=== PATIENT | male | born 1975 | race Caucasian/White ===

== ENCOUNTER 2017-02-23 13:33 | Observation (INO) | payer BC, OTHER ==
[2017-02-23] VITALS (12 sets, daily range): BP systolic 117–156; BP diastolic 60–93; PULSE 69–101; RESP 16–20; TEMP 98–98.2; O2SAT 94–100
[~2017-02-23] VITALS: Ht 182.9 cm; Wt 96.0 kg
[~2017-02-23 13:33] MED LIST: CYCL-36 PO; HYDR-3533 PO; IBUP-238 PO; PRED20 PO
[2017-02-23 14:16] LABS: AUTOMATED NEUTROPHIL # 4.3 TH/MM3 (1.8-7.7); BASOPHIL % 0.3 % (0.0-2.0); EOSINOPHIL # 0.2 TH/MM3 (0-0.4); EOSINOPHIL % 2.3 % (0.0-4.0); HEMATOCRIT 44.6 % (39.0-51.0); HEMO FLAGS DIFF FINAL; LYMPH % 20.4 % (9.0-44.0); LYMPHOCYTE # 1.3 TH/MM3 (1.0-4.8); MEAN CELL VOLUME 88.6 FL (80.0-100.0); MEAN CORPUSCULAR HEMOGLOBIN 30.8 PG (27.0-34.0); MEAN CORPUSCULAR HGB CONC 34.8 % (32.0-36.0); MONO % 12.5 % (0.0-8.0); NEUT % 64.5 % (16.0-70.0); PLATELET COUNT 137 TH/MM3 (150-450); RED BLOOD COUNT 5.03 MIL/MM3 (4.50-5.90); RED CELL DISTRIBUTION WIDTH 13.5 % (11.6-17.2); WHITE BLOOD COUNT 6.6 TH/MM3 (4.0-11.0)
--- NOTE | 2017-02-23 14:17 | PD ---
HPI Chief Complaint: Chest Pain Time Seen by Provider: 14:12 Travel History International Travel<30 days: No Contact w/Intl Traveler<30days: No Traveled to known affect area: No History of Present Illness HPI 41-year-old male with history of CAD, hypertension, stents placed earlier this year by Dr. gifford, then again most recently 3 weeks ago in [place], presents emergency department for evaluation of left-sided chest pain intermittent for the last 2 days. Patient states that it is mostly on the left radiates to his left shoulder and this morning his left eye was feeling abnormal. States the pain is intermittent. It is alleviated with sublingual nitroglycerin. Patient states that he does not have to be doing anything for the pain come on. Reports nausea without vomiting. States his pain is a 6 out of 10 primarily in his left arm at this time. Denies any recent illnesses, fever, chills. No injury. He has no other symptoms to report. PFSH Past Medical History Cardiovascular Problems: Yes Social History Alcohol Use: No Tobacco Use: No Substance Use: No Allergies-Medications (Allergen,Severity, Reaction): Coded Allergies: No Known Allergies (Unverified , 01/02/15) Reported Meds & Prescriptions Reported Meds & Active Scripts Active Reported Omeprazole 20 Mg Tab 20 Mg PO HS Metoprolol Tartrate 50 Mg Tab 50 Mg PO BID Atorvastatin (Atorvastatin Calcium) 80 Mg Tab 80 Mg PO HS Lisinopril 10 Mg Tab 10 Mg PO DAILY Sertraline (Sertraline HCl) 100 Mg Tab 100 Mg PO HS Amlodipine (Amlodipine Besylate) 5 Mg Tab 5 Mg PO DAILY Isosorbide Mononitrate ER (Isosorbide Mononitrate) 30 Mg Tracy 30 Mg PO DAILY Carvedilol 25 Mg Tab 25 Mg PO BID Aspirin Low Dose (Aspirin) 81 Mg Chew 81 Mg CHEW DAILY Review of Systems Except as stated in HPI: all other systems reviewed are Neg Physical Exam Narrative GENERAL: Well-nourished male patient, ambulatory and in no acute distress. SKIN: Focused skin assessment warm/dry. HEAD: Atraumatic. Normocephalic. EYES: Pupils equal and round. No scleral icterus. No injection or drainage. ENT: No nasal bleeding or discharge. Mucous membranes pink and moist. NECK: Trachea midline. No JVD. CARDIOVASCULAR: Regular rate and rhythm. No murmur appreciated. RESPIRATORY: No accessory muscle use. Clear to auscultation. Breath sounds equal bilaterally. GASTROINTESTINAL: Abdomen soft, non-tender, nondistended. Hepatic and splenic margins not palpable. MUSCULOSKELETAL: No obvious deformities. No clubbing. No cyanosis. No edema. NEUROLOGICAL: Awake and alert. No obvious cranial nerve deficits. Motor grossly within normal limits. Normal speech. PSYCHIATRIC: Appropriate mood and affect; insight and judgment normal. Data Data Last Documented VS Vital Signs Date Time Temp Pulse Resp B/P (MAP) Pulse Ox O2 Delivery O2 Flow Rate FiO2 02/23/17 17:31 71 135/93 (107) 97 02/23/17 16:00 16 02/23/17 14:22 Room Air 02/23/17 13:34 98.0 Orders Orders Electrocardiogram (02/23/17 13:51) Ckmb (Isoenzyme) Profile (02/23/17 13:51) Complete Blood Count With Diff (02/23/17 13:51) Comprehensive Metabolic Panel (02/23/17 13:51) Magnesium (Mg) (02/23/17 13:51) Prothrombin Time / Inr (Pt) (02/23/17 13:51) Act Partial Throm Time (Ptt) (02/23/17 13:51) Troponin I (02/23/17 13:51) Lipase (02/23/17 13:51) Chest, Pa & Lat (02/23/17 13:51) Nitroglycerin Sl (Nitrostat Sl) (02/23/17 14:30) Aspirin Chew (Aspirin Chew) (02/23/17 14:18) CKMB (02/23/17 14:00) CKMB% (02/23/17 14:00) Morphine Inj (Morphine Inj) (02/23/17 15:45) Ondansetron Inj (Zofran Inj) (02/23/17 15:45) Morphine Inj (Morphine Inj) (02/23/17 18:15) Ondansetron Inj (Zofran Inj) (02/23/17 18:15) Electrocardiogram (02/23/17 ) Troponin I (02/23/17 18:15) Creatine Kinase (Cpk) (02/23/17 18:15) Admit Order (Ed Use Only) (02/23/17 18:16) Activity Bed Rest With Brp (02/23/17 18:16) Vital Signs (Adult) Q4H (02/23/17 18:16) Cardiac Rhythm .As Directed (02/23/17 18:16) Notify Dr: Other .PRN (02/23/17 18:16) Notify Dr. Parameters (02/23/17 18:16) Resp Oxygen Nasal Cannula (02/23/17 ) Diet Npo (02/24/17 Breakfast) Diet Heart Healthy (02/23/17 Dinner) Ckmb (Isoenzyme) Profile (02/23/17 21:15) Troponin I (02/23/17 21:15) Electrocardiogram (02/23/17 21:15) ^ Obtain (02/23/17 18:16) Sodium Chlor 0.9% 1000 Ml Inj (Ns 1000 M (02/23/17 18:16) Sodium Chloride 0.9% Flush (Ns Flush) (02/23/17 18:30) Sodium Chloride 0.9% Flush (Ns Flush) (02/23/17 21:00) Acetaminophen (Tylenol) (02/23/17 18:30) Acetamin-Hydrocod 325-7.5 Mg ([place] 7.5 (02/23/17 18:30) Morphine Inj (Morphine Inj) (02/23/17 18:30) Ondansetron Inj (Zofran Inj) (02/23/17 18:30) Nitroglycerin Sl (Nitrostat Sl) (02/23/17 18:30) Lay Brother / Telemetry LAZARO.Q8H (02/23/17 18:16) Reji Bilateral/Knee High LAZARO.QSHIFT (02/23/17 18:16) Labs Laboratory Tests Test 02/23/17 14:00 White Blood Count 6.6 TH/MM3 Red Blood Count 5.03 MIL/MM3 Hemoglobin 15.5 GM/DL Hematocrit 44.6 % Mean Corpuscular Volume 88.6 FL Mean Corpuscular Hemoglobin 30.8 PG Mean Corpuscular Hemoglobin Concent 34.8 % Red Cell Distribution Width 13.5 % Platelet Count 137 TH/MM3 Mean Platelet Volume 8.9 FL Neutrophils (%) (Auto) 64.5 % Lymphocytes (%) (Auto) 20.4 % Monocytes (%) (Auto) 12.5 % Eosinophils (%) (Auto) 2.3 % Basophils (%) (Auto) 0.3 % Neutrophils # (Auto) 4.3 TH/MM3 Lymphocytes # (Auto) 1.3 TH/MM3 Monocytes # (Auto) 0.8 TH/MM3 Eosinophils # (Auto) 0.2 TH/MM3 Basophils # (Auto) 0.0 TH/MM3 CBC Comment DIFF FINAL Differential Comment Prothrombin Time 10.6 SEC Prothromb Time International Ratio 1.0 RATIO Activated Partial Thromboplast Time 26.3 SEC Blood Urea Nitrogen 13 MG/DL Creatinine 1.01 MG/DL Random Glucose 96 MG/DL Total Protein 7.8 GM/DL Albumin 3.9 GM/DL Calcium Level 8.9 MG/DL Magnesium Level 1.9 MG/DL Alkaline Phosphatase 109 U/L Aspartate Amino Transf (AST/SGOT) 27 U/L Alanine Aminotransferase (ALT/SGPT) 45 U/L Total Bilirubin 0.5 MG/DL Sodium Level 139 MEQ/L Potassium Level 3.5 MEQ/L Chloride Level 106 MEQ/L Carbon Dioxide Level 24.2 MEQ/L Anion Gap 9 MEQ/L Estimat Glomerular Filtration Rate 81 ML/MIN Total Creatine Kinase 212 U/L Creatine Kinase MB 1.3 NG/ML Troponin I LESS THAN 0.02 NG/ML Lipase 117 U/L MDM Medical Decision Making Medical Screen Exam Complete: Yes Emergency Medical Condition: Yes Medical Record Reviewed: Yes Differential Diagnosis ACS versus chest wall pain versus pleuritic pain versus spasm Narrative Course 41-year-old male presents to emergency department for evaluation of left-sided chest pain. Patient appears without distress. He is currently having pain. He is given sublingual nitroglycerin which helped briefly improve his pain but it does return. EKGs is reviewed by my attending physician no acute ST elevation or depression. Laboratory Tests Test 02/23/17 14:00 White Blood Count 6.6 TH/MM3 Red Blood Count 5.03 MIL/MM3 Hemoglobin 15.5 GM/DL Hematocrit 44.6 % Mean Corpuscular Volume 88.6 FL Mean Corpuscular Hemoglobin 30.8 PG Mean Corpuscular Hemoglobin Concent 34.8 % Red Cell Distribution Width 13.5 % Platelet Count 137 TH/MM3 Mean Platelet Volume 8.9 FL Neutrophils (%) (Auto) 64.5 % Lymphocytes (%) (Auto) 20.4 % Monocytes (%) (Auto) 12.5 % Eosinophils (%) (Auto) 2.3 % Basophils (%) (Auto) 0.3 % Neutrophils # (Auto) 4.3 TH/MM3 Lymphocytes # (Auto) 1.3 TH/MM3 Monocytes # (Auto) 0.8 TH/MM3 Eosinophils # (Auto) 0.2 TH/MM3 Basophils # (Auto) 0.0 TH/MM3 CBC Comment DIFF FINAL Differential Comment Prothrombin Time 10.6 SEC Prothromb Time International Ratio 1.0 RATIO Activated Partial Thromboplast Time 26.3 SEC Blood Urea Nitrogen 13 MG/DL Creatinine 1.01 MG/DL Random Glucose 96 MG/DL Total Protein 7.8 GM/DL Albumin 3.9 GM/DL Calcium Level 8.9 MG/DL Magnesium Level 1.9 MG/DL Alkaline Phosphatase 109 U/L Aspartate Amino Transf (AST/SGOT) 27 U/L Alanine Aminotransferase (ALT/SGPT) 45 U/L Total Bilirubin 0.5 MG/DL Sodium Level 139 MEQ/L Potassium Level 3.5 MEQ/L Chloride Level 106 MEQ/L Carbon Dioxide Level 24.2 MEQ/L Anion Gap 9 MEQ/L Estimat Glomerular Filtration Rate 81 ML/MIN Creatine Kinase MB 1.3 NG/ML Lipase 117 U/L Last Impressions Chest X-Ray 02/23/17 1351 Signed Impressions: Service Date/Time: Thursday, February 23, 2017 14:08 - CONCLUSION: No acute disease. Ant Pond MD 0100 patient states he is having left arm pain with associated nausea this time. He'll be given additional pain control medication and antiemetic. I have reviewed the findings with my attending. I have also called Dr. gifford who will come and evaluate the patient in the emergency department. [address] Gifford. He has been held up and at this time we'll not be able to get to evaluate the patient but does request observation admission he' ll see him tomorrow. Patient is placed in the chest pain center. Plans discussed with the patient and . They are in agreement with this plan of care. Diagnosis Primary Impression: Chest pain Qualified Codes: R07.9 - Chest pain, unspecified Admitting Information Admitting Physician Requests: Observation Condition: Stable Radha Rodriguez AVA Feb 23, 2017 14:17
[2017-02-23] MEDS ORDERED: ASPIRIN 81 MG CHEW TAB CHEW STA (14:18)
--- NOTE | 2017-02-23 14:24 | RADRPT ---
EXAM DATE/TIME: 02/23/2017 14:08 [facility] COMPARISON: No previous studies available for comparison. INDICATIONS : Chest pain and short of breath. MEDICAL HISTORY : Cardiovascular disease. SURGICAL HISTORY : Cardiac stents. ENCOUNTER: Initial ACUITY: 2 days PAIN SCORE: 5/10 LOCATION: Left chest FINDINGS: PA and lateral views of the chest demonstrate the lungs to be symmetrically aerated without evidence of mass, infiltrate or effusion. The cardiomediastinal contours are unremarkable. Coronary artery st ents. Osseous structures are intact. CONCLUSION: No acute disease. Ant Pond MD on February 23, 2017 at 14:19 Board Certified Radiologist. This report was verified electronically.
[2017-02-23 14:26] LABS: APTT (PATIENT) 26.3 SEC (24.3-30.1); PROTHROMBIN TIME - PATIENT 10.6 SEC (9.8-11.6)
[2017-02-23] MEDS: NITROGLYCERIN 0.4 MG SL 25 TABS/BTL SL SCH ×3 (14:34→17:33)
[2017-02-23 14:38] LABS: ANION GAP 9 MEQ/L (5-15); AST (GOT) 27 U/L (15-37); BICARBONATE 24.2 MEQ/L (21.0-32.0); BLOOD UREA NITROGEN 13 MG/DL (7-18); CHLORIDE 106 MEQ/L (98-107); GLOMERULAR FILTRATION RATE 81 ML/MIN (>89); MAGNESIUM 1.9 MG/DL (1.5-2.5); POTASSIUM 3.5 MEQ/L (3.5-5.1); SODIUM (NA) 139 MEQ/L (136-145)
[2017-02-23 14:39] LABS: ALT (GPT) 45 U/L (12-78)
[2017-02-23 14:43] LABS: ALKALINE PHOSPHATASE 109 U/L (45-117); CREATINE KINASE 212 U/L (39-308); TOTAL BILIRUBIN ADULT 0.5 MG/DL (0.2-1.0)
[2017-02-23 14:56] LABS: CKMB 1.3 NG/ML (0.5-3.6)
[2017-02-23] MEDS ORDERED: ONDANSETRON HCL 4 MG/2 ML VIAL IV PUSH ONE ×2 (15:45→18:15)
[2017-02-23] MEDS ORDERED: MORPHINE SULFATE 4 MG/ML INJ IV PUSH ONE ×2 (15:45→18:15)
[2017-02-23] MEDS ORDERED: ACETAMINOPHEN 500 MG CPLT PO PRN (18:30)
[2017-02-23] MEDS ORDERED: SODIUM CHLORIDE 0.9% FLUSH 10 ML FLUSH IV FLUSH PRN (18:30)
[2017-02-23] MEDS ORDERED: ONDANSETRON HCL 4 MG/2 ML VIAL IV PUSH PRN (18:30)
[2017-02-23] MEDS ORDERED: ACETAMINOPHEN/HYDROcodone 325 MG/7.5 MG TAB PO PRN (18:30)
[2017-02-23] MEDS: SODIUM CHLOR 0.9% 1000 ML INJ 1,000 ML IV SCH (19:03)
[2017-02-23 19:10] LABS: CREATINE KINASE 171 U/L (39-308)
[2017-02-23] MEDS ORDERED: ASPI81CH6 CHEW (20:20)
[2017-02-23] MEDS ORDERED: CARV25TA PO (20:20)
[2017-02-23] MEDS ORDERED: ISOS30TA3 PO (20:20)
[2017-02-23] MEDS ORDERED: AMLO5TAB2 PO (20:22)
[2017-02-23] MEDS ORDERED: SERT-129 PO (20:23)
[2017-02-23] MEDS ORDERED: LISI10TA3 PO (20:24)
[2017-02-23] MEDS ORDERED: ATOR80TA45 PO (20:26)
[2017-02-23] MEDS ORDERED: METO50TA PO (20:27)
[2017-02-23] MEDS ORDERED: OMEP20TA93 PO (20:29)
[2017-02-23] MEDS ORDERED: SODIUM CHLORIDE 0.9% FLUSH 10 ML FLUSH IV FLUSH SCH (21:00)
[2017-02-23] MEDS: MORPHINE SULFATE 4 MG/ML INJ IV PUSH PRN (22:24)
[2017-02-23 22:56] LABS: CREATINE KINASE 155 U/L (39-308)
[2017-02-23] MEDS: NITROGLYCERIN 0.4 MG SL 25 TABS/BTL SL PRN ×2 (23:39→23:49)
[2017-02-23] MEDS ORDERED: BRIL90TA PO (23:45)
[2017-02-23] MEDS ORDERED: ALPR.5 PO (23:46)
[2017-02-24 00:10] VITALS: PULSE 92
[2017-02-24 03:34] VITALS: BP 122/69; PULSE 67; RESP 18; TEMP 98.3; O2SAT 97
[2017-02-24] MEDS: SODIUM CHLOR 0.9% 1000 ML INJ 1,000 ML IV SCH (04:17)
[2017-02-24] MEDS: MORPHINE SULFATE 4 MG/ML INJ IV PUSH PRN (04:18)
[2017-02-24 04:21] VITALS: PULSE 69
[2017-02-24] MEDS: NITROGLYCERIN 0.4 MG SL 25 TABS/BTL SL PRN ×3 (05:51→06:02)
[2017-02-24 05:54] VITALS: BP 109/63; PULSE 80; RESP 18; O2SAT 93
[2017-02-24 07:28] VITALS: BP 111/60; PULSE 81; RESP 20; TEMP 97.5
[2017-02-24] MEDS ORDERED: MORPHINE SULFATE 2 MG/ML INJ IV ONE (07:45)
--- NOTE | 2017-02-24 09:03 | PD.CONS ---
HPI Service cardiology Consult Requested By Reason for Consult chest pain Primary Care Physician Ishaan Neal, DO History of Present Illness This is a 41 yo WM with CAD, PCI NATHALY placed to [facility] diagonal in 2015 for severe in-stent restenosis and reported recent re-catheterization in [place] who presents with exertional chest pain starting 3 days ago during work. He had to leave work early due to feeling unwell and continues to have intermittent chest discomfort radiating to left arm and jaw felt now at rest and with associated nausea. He came to ED for evaluation where troponins are negative, ECG shows no ST changes. He does get relief of symptoms with nitro and morphine. He mentions his troponins, ECG and stress tests have always looked normal in the past and ultimately required catheterizations which shows coronary disease. Last echo on file is February 2016 showing normal EF. He states he has been compliant with medications and takes Effient daily. (Maricel Johnson) Review of Systems Consitutional: DENIES: Fatigue, Fever, Chills, Weight gain, Weight loss Respiratory: DENIES: Cough, Snoring, Shortness of breath, Wheezing, Sputum production Cardiovascular: DENIES: Palpitations, Syncope, Tachycardia Gastrointestinal: DENIES: Vomiting, Change in bowel habits, Reflux, Bloody stools, Melena (Maricel Johnson) Past Family Social History Allergies: Coded Allergies: No Known Allergies (Unverified Allergy, Unknown, 02/24/17) Past Medical History CAD, prior PCI with stenting Reported Medications Reported Meds & Active Scripts Active Reported Xanax (Alprazolam) 0.5 Mg Tab 0.5 Mg PO BID PRN Brilinta (Ticagrelor) 90 Mg Tab 90 Mg PO BID Omeprazole 20 Mg Tab 20 Mg PO HS Metoprolol Tartrate 50 Mg Tab 50 Mg PO BID Atorvastatin (Atorvastatin Calcium) 80 Mg Tab 80 Mg PO HS Lisinopril 10 Mg Tab 10 Mg PO DAILY Sertraline (Sertraline HCl) 100 Mg Tab 100 Mg PO HS Amlodipine (Amlodipine Besylate) 5 Mg Tab 5 Mg PO DAILY Isosorbide Mononitrate ER (Isosorbide Mononitrate) 30 Mg Tracy 30 Mg PO DAILY Carvedilol 25 Mg Tab 25 Mg PO BID Aspirin Low Dose (Aspirin) 81 Mg Chew 81 Mg CHEW DAILY Active Ordered Medications Current Medications Medications (Trade) Dose Ordered Sig/[place] Route Start Time Stop Time Status Last Admin Sodium Chloride 1,000 ml @ 100 mls/hr Q10H IV 02/23/17 18:16 02/24/17 04:17 (NS Flush) 2 ml UNSCH PRN IV FLUSH 02/23/17 18:30 (NS Flush) 2 ml BID IV FLUSH 02/23/17 21:00 02/23/17 22:23 (Tylenol) 500 mg Q4H PRN PO 02/23/17 18:30 ([place] 7.5-325 Mg) 1 tab Q4H PRN PO 02/23/17 18:30 02/24/17 00:03 (Morphine Inj) 2 mg Q4H PRN IV PUSH 02/23/17 18:30 02/24/17 04:18 (Zofran Inj) 4 mg Q6H PRN IV PUSH 02/23/17 18:30 02/23/17 22:24 (Nitrostat Sl) 0.4 mg Q5M PRN SL 02/23/17 18:30 02/24/17 06:02 Family History non-contributory Social History denies tobacco or etoh (Maricel Johnson) Physical Exam Vital Signs Vital Signs Date Time Temp Pulse Resp B/P (MAP) Pulse Ox O2 Delivery O2 Flow Rate FiO2 02/24/17 07:28 97.5 81 20 111/60 (77) 02/24/17 05:54 80 18 109/63 (78) 93 02/24/17 04:21 69 02/24/17 03:34 98.3 67 18 122/69 (86) 97 02/24/17 00:10 92 02/23/17 23:55 95 18 117/60 (79) 94 02/23/17 23:40 101 20 121/61 (81) 94 02/23/17 22:56 98.0 81 18 130/75 (93) 95 02/23/17 21:07 88 02/23/17 20:29 98.2 69 18 139/70 (93) 96 02/23/17 20:11 02/23/17 19:03 70 16 128/74 (92) 96 Room Air 02/23/17 17:31 71 135/93 (107) 97 02/23/17 16:00 80 16 126/74 (91) 96 02/23/17 15:52 72 20 97 02/23/17 14:25 76 140/90 (107) 02/23/17 14:22 73 16 98 Room Air 02/23/17 13:34 98.0 73 16 156/93 (114) 100 Physical Exam GENERAL: SKIN: Warm and dry. HEAD: Atraumatic. Normocephalic. EYES: Pupils equal and round. . ENT: No nasal bleeding or discharge. NECK: Trachea midline. No JVD. CARDIOVASCULAR: Regular rate and rhythm. No murmurs RESPIRATORY: No accessory muscle use. Clear to auscultation. Breath sounds equal bilaterally. GASTROINTESTINAL: Abdomen soft, non-tender, nondistended. e. MUSCULOSKELETAL: Extremities without clubbing, cyanosis, or edema. No obvious deformities. NEUROLOGICAL: Awake and alert. No obvious cranial nerve deficits. Normal speech. PSYCHIATRIC: Appropriate mood and affect; insight and judgment normal. Laboratory Laboratory Tests Test 02/23/17 14:00 02/23/17 18:37 02/23/17 21:59 White Blood Count 6.6 Red Blood Count 5.03 Hemoglobin 15.5 Hematocrit 44.6 Mean Corpuscular Volume 88.6 Mean Corpuscular Hemoglobin 30.8 Mean Corpuscular Hemoglobin Concent 34.8 Red Cell Distribution Width 13.5 Platelet Count 137 Mean Platelet Volume 8.9 Neutrophils (%) (Auto) 64.5 Lymphocytes (%) (Auto) 20.4 Monocytes (%) (Auto) 12.5 Eosinophils (%) (Auto) 2.3 Basophils (%) (Auto) 0.3 Neutrophils # (Auto) 4.3 Lymphocytes # (Auto) 1.3 Monocytes # (Auto) 0.8 Eosinophils # (Auto) 0.2 Basophils # (Auto) 0.0 CBC Comment DIFF FINAL Differential Comment Prothrombin Time 10.6 Prothromb Time International Ratio 1.0 Activated Partial Thromboplast Time 26.3 Blood Urea Nitrogen 13 Creatinine 1.01 Random Glucose 96 Total Protein 7.8 Albumin 3.9 Calcium Level 8.9 Magnesium Level 1.9 Alkaline Phosphatase 109 Aspartate Amino Transf (AST/SGOT) 27 Alanine Aminotransferase (ALT/SGPT) 45 Total Bilirubin 0.5 Sodium Level 139 Potassium Level 3.5 Chloride Level 106 Carbon Dioxide Level 24.2 Anion Gap 9 Estimat Glomerular Filtration Rate 81 Total Creatine Kinase 212 171 155 Creatine Kinase MB 1.3 1.0 Troponin I LESS THAN 0.02 LESS THAN 0.02 LESS THAN 0.02 Lipase 117 (Maricel Johnson) Result Diagram: 02/23/17 1400 02/23/17 1400 Assessment and Plan Problem List: (1) CAD (coronary artery disease) ICD Codes: I25.10 - Atherosclerotic heart disease of [place] coronary artery without angina pectoris (2) Chest pain ICD Codes: R07.9 - Chest pain, unspecified Status: Acute Assessment and Plan This is a 41 yo WM with CAD, PCI NATHALY placed to diagonal in 2016 for severe in-stent restenosis and reported recent re-catheterization in [place] who presents with exertional chest pain starting 3 days ago during work. troponin negative. ECG shows no concerning ST changes. angina- He continues to feel symptomatic intermittently overnight. Symptoms are suggestive of CAD and will plan for LHC later this afternoon. keep npo (Maricel Johnson) Assessment and Plan LHC - LAD/Diagonal stents patent. Mild LCx disease. small nondominant RCA 80% stenosis. medical mgt restart brillinta! asa statin. increase isosorbide 120 mg daily DC planning FU in OPD (Tyrone Johnston MD) Problem Qualifiers (1) Chest pain: Qualified Codes: R07.9 - Chest pain, unspecified Maricel Johnson Feb 24, 2017 09:03 Tyrone Johnston MD Feb 24, 2017 11:11
[2017-02-24] MEDS ORDERED: HEPARIN-NS/PF INJ 500 ML ONE (10:47)
[2017-02-24] MEDS ORDERED: MIDAZOLAM HCL 2 MG/2 ML VIAL ONE ×2 (10:49→10:56)
[2017-02-24] MEDS ORDERED: TICAGRELOR 90 MG TAB PO ONE (11:08)
[2017-02-24] MEDS ORDERED: ISOS120T PO (11:20)
--- NOTE | 2017-02-24 11:23 | HHI.DS ---
Discharge Summary Admission Date Feb 23, 2017 at 18:19 Admitting Diagnosis CHEST PAIN Procedures [facility] CBC/BMP: 02/23/17 1400 02/23/17 1400 Significant Findings Laboratory Tests Test 02/23/17 14:00 02/23/17 18:37 02/23/17 21:59 Platelet Count 137 TH/MM3 (150-450) Monocytes (%) (Auto) 12.5 % (0.0-8.0) Estimat Glomerular Filtration Rate 81 ML/MIN (>89) Troponin I LESS THAN 0.02 NG/ML LESS THAN 0.02 NG/ML LESS THAN 0.02 NG/ML PE at Discharge GENERAL: SKIN: Warm and dry. HEAD: Normocephalic. EYES: No scleral icterus. No injection or drainage. NECK: Supple, trachea midline. No JVD or lymphadenopathy. CARDIOVASCULAR: Regular rate and rhythm without murmurs, gallops, or rubs. RESPIRATORY: Breath sounds equal bilaterally. No accessory muscle use. GASTROINTESTINAL: Abdomen soft, non-tender, nondistended. MUSCULOSKELETAL: No cyanosis, or edema. BACK: Nontender without obvious deformity. No CVA tenderness. Pt Condition on Discharge: Good Discharge Disposition: Discharge Home Discharge Instructions DIET: Follow Instructions for: Heart Healthy Diet Activities you can perform: Weight Bearing as Tyrone Elizabeth MD Feb 24, 2017 11:23
--- NOTE | 2017-02-24 11:24 | CATHPROC ---
Transmit HIS Report Study Information Study Number Admission Scheduled Start Study Start [id number] Feb 23 2017 6:19PM 02/24/2017 02/24/2017 [place] [facility] Cardiac Catheterization Admit Source Facility Department Emergency department [facility] - Infant Toddler Lead Teacher Physician and Clinical Staff Initial Tyrone Bullock Sawdust Machine Operator Srinivas Irvin Recorder Evette Newton,RT(R) Scrub Jim PerezSECRETARIAL STENOGRAPHER(BS) Procedures Performed Procedure Location (Site) Vessel Name Coronary Angiograms LCA Left Coronary Coronary Angiograms RCA Right Coronary L Heart Cath Wire insertion Fem Art (right) Femoral Art Equipment Time Rn Dermatology Description Size Mfg Part Number Used/Scraped TRANSDUCER, TRUWAVE [id number] 10:52 MCINTYRE MCMILLAN * Used W/STOCKCOCK *[id number] *[id number] *[id number] 10:52 [employer] IND[employer]RIES PACK, CCL CUSTOM * Used *[id number] 10:52 [employer] PACER PEN, SKIN DUAL W/ RULER * Used *[id number] 10:54 [employer] (Former[employer]) MEDICAL WIRE, 3MMJ .035 180CM 180CM Used *[id number] 10:52 MERIT MEDICAL WIRE, 3MMJ .035 180CM 180CM Used *[id number] 10:52 NAMIC MANIFOLD, 4 PORT * Used *[id number] 10:52 NYCOMED OMNIPAQUE, 350 MG, 150ML 150ML [id number] Used [id number] 10:52 [employer] MEDICAL BLANKET,WARM AIR CCL * Used *[id number] 10:52 TERUMO MEDICAL SHEATH, FR5 TERUMO (10CM) FR 5 Used *[id number] History: Current Medications Medication Dosage/Unit Route Frequency Last Date/Time Taken ASA Beta Lakeisha BRILLINTA Statins (any) NORVASC History: Allergies Allergy Reaction No Known Allergies History: Risk Factors Family History of Hypertension Dyslipidemia Previous TN Previous Heart Failure Premature CAD Yes Yes No No No Prior Valve Prior PCI Prior PCIDate Prior CABG Surgery No Yes 03/16/2015 No Cerebrovascular Peripheral Artery Chronic Lung On Dialysis Diabetes Disease Disease Disease No No No No No History: Symptoms/Diagnosis Selection Items Chest pain History: CV Disease Selection Items Known CAD History: Stress Tests Stress or Imaging Studies Performed No History: Other Disease Selection Items CAD Labs Hgb (g/dl) Hct (%) WBC (l/cumm) Platelets (thousands) 11.60-17.00 35.00-51.00 4.00-11.00 150.00-450.00 15.5 44 6.6 137 Glucose (mg/dl) BUN (mg/dl) Creatinine (mg/dl) BUN:Creatinine (1:x) 74.00-106.00 7.00-18.00 0.50-1.30 10.00-20.00 96 13 1.0 13 Na (meq/l) K (meq/l) 136.00-145.00 3.50-5.10 139 3.5 INR (PTT:PT) 0.90-1.10 1 Troponin I (ng/ml) CPK (u/l) CPK-MB (ng/ML) 0.02-0.05 26.00-308.00 0.50-3.60 0.2 135 Not Drawn Medication Medication Total Dose (Bolus/Oral) Medication Total Dosage/Unit 1% XYLOCAINE 20 mL BRILLINTA 180 mg FENTANYL 100 mcg VERSED 4 mg Medications (Bolus/Oral) Medication Time Given Dosage/Unit Administered By Reason 02/24/2017 10:50:21 VERSED 2 mg Srinivas Irvin AM 2 mg VERSED given in lab by Srinivas Irvin via Peripheral IV. Ordered by Tyrone Johnston. 02/24/2017 10:51:25 FENTANYL 50 mcg Srinivas Irvin AM 50 mcg FENTANYL given in lab by Srinivas Irvin via Peripheral IV. Ordered by Tyrone Johnston. 02/24/2017 10:56:04 1% XYLOCAINE 20 mL Tyrone Johnston AM 20 mL 1% XYLOCAINE given in lab by Tyrone Johnston in Right Groin via Subcutaneous. 02/24/2017 10:58:42 VERSED 2 mg Srinivas Irvin AM 2 mg VERSED given in lab by Srinivas Irvin via Peripheral IV. 02/24/2017 10:59:50 FENTANYL 50 mcg Srinivas Irvin AM 50 mcg FENTANYL given in lab by Srinivas Irvin via Peripheral IV. 02/24/2017 11:09:40 BRILLINTA 180 mg Srinivas Irvin AM 180 mg BRILLINTA given in lab by Srinivas Irvin in Per mouth via Oral. Medication (Drip) Medication Time Given Dosage/Unit Concentration/Unit Diluent (ml) Jocelyn n 02/24/2017 10:43:21 IV Solutions 50 mL (IV) NaCl .9 AM IV Solutions given in lab by Srinivas Irvni in Right Forearm via Peripheral IV. Pump/Drip Flow usin g NaCl .9. 02/24/2017 10:48:41 IV Solutions 0 mL (IV) 500 NaCl .9 AM IV Solutions given in lab by Srinivas Irvin in Right Forearm via Peripheral IV. Pump/Drip Flow = 20 ml/hr using NaCl .9. Ordered by Tyrone Johnston. Initial Case Assessment Cardiovascular HR Rhythm NIBP Chest Pain 64 reg 140/94 0 Edema Present Skin color Skin None Normal Warm Circulatory - Right Pulses Posterior Tibial Femoral 3 2 Scale (0,1,2,3,4,d) Circulatory - Left Pulses Posterior Tibial Femoral 2 Scale (0,1,2,3,4,d) Circulatory - Lower Extremities Color Lower Right Color Lower Left Normal Normal Neurological State Oriented to time-place- Alert Moves all extremities person Respiration - General Respiration Rate SpO2 (%) (B/min) 16 98 Final Case Assessment Cardiovascular HR Rhythm NIBP Chest Pain 80 reg 142/90 0 Edema Present Skin color Skin None Normal Warm Circulatory - Right Pulses Dorsalis Pedis Femoral 2 2 Scale (0,1,2,3,4,d) Circulatory - Left Pulses Dorsalis Pedis Femoral 2 Scale (0,1,2,3,4,d) Circulatory - Lower Extremities Color Lower Right Color Lower Left Normal Normal Neurological State Oriented to time-place- Alert Moves all extremities person Respiration - General Respiration Rate SpO2 (%) (B/min) 21 95 Chronological Log Time Study Chronological Log 10:35:00 Patient arrived via Bed. 10:43:05 Patient Name, D.O.B, / Armband Verified By R.N. 10:43:05 Consent signed by the physician and the patient and verified by the Infant Toddler Lead Teacher staff. 10:43:06 Pre-op and post- op instructions given; patient acknowledges understanding of instructions. 10:43:07 Verbal Stimulation=2 Physical Stimulation=2 Airway=2 Respiration=2 TOTAL=8. (0=absent, 1=li mited, 2=present) 10:43:16 Patient has been NPO for More than 6Hrs. 10:43:17 Skin Breakdown-none 10:43:18 Patient Warmer Placed on the Table. 10:43:19 Amauri Prominences Protected 10:43:20 A # 18 IV was noted in the Forearm (right). Grade = 0 10:43:21 IV Solutions given in lab by Srinivas Irvin in Right Forearm via Peripheral IV. Pump/Drip Flow using NaCl .9. 10:43:21 History and physical on the chart or being dictated. Assessment: Initial Case, HR=64 BPM, Rhythm=reg, VVMF=827/94 mmhg, Chest Pain=0, Edema=None, Co harshil=Normal, Skin = Warm Right Pulses: Post Tib=3, Femoral=2 Left Pulses: Evaristo Ped=2, Femoral=2 10:43:22 Lower Right Extremities: Color=Normal Lower Left Extremities: Color=Normal Neurological: State=Alert, Ox3, MONSON Respiration: Resp=16 B/min, SpO2=98 % Vitals capture started with the following parameters, Patient=Adult, Interval=5 min, Initial Pr tfgqjo=544 mmHg, 10:43:26 Deflation Rate=5 mmHg, Cuff placed on Left Arm 10:44:41 HR=70 bpm, MZNX=835/94 mmhg, TyK5=681.0 %, Resp=21 B/min, Pain=0, Brianda=10, Hogan=2 10:45:04 Reference ECG taken 10:46:16 Bilateral groins prepped with 2% chlorhexidine, and draped after a 3 minute waiting time. 10:46:20 paged 10:48:31 A # 20 IV was noted in the Forearm (right). Grade = 0 IV Solutions given in lab by Srinivas Irvin in Right Forearm via Peripheral IV. Pump/Drip Cristhian w = 20 ml/hr using NaCl 10:48:41 .9. Ordered by Tyrone Johnston. 10:49:03 HR=60 bpm, LLXC=823/94 mmhg, SpO2=98.0 %, Resp=15 B/min, Pain=0, Brianda=10, Hogan=2 10:49:38 arrived. 10:50:21 2 mg VERSED given in lab by Srinivas Irvin via Peripheral IV. Ordered by Tyrone Johnston. 10:51:25 50 mcg FENTANYL given in lab by Srinivas Irvin via Peripheral IV. Ordered by Liyah Johnston. 10:52:51 Pressure channel 1 zeroed. 10:54:08 HR=72 bpm, PPGA=325/94 mmhg, SpO2=98.0 %, Resp=22 B/min, Pain=0, Brianda=10, Hogan=2 Time Out. Correct patient, correct procedure, correct physician, power injector not loaded with contrast with surgical 10:55:04 team present. Time Out Concurred by MD and individual staff in procedure. 10:55:27 Case Start 10:56:04 20 mL 1% XYLOCAINE given in lab by Tyrone Johnston in Right Groin via Subcutaneous. 10:56:59 Access site was Right Femoral Artery. 10:57:03 A wire was inserted via Fem Art (right). 10:57:06 A SHEATH, FR5 TERUMO (10CM) FR 5 was advanced into the Fem Art (right) using the Percutaneo us technique. A JL 4.0 INFINITI CATHETER FR 5 was advanced over a wire. OMNIPAQUE, 350 MG, 150ML 150ML was us ed for 10:58:22 injections. 10:58:42 2 mg VERSED given in lab by Srinivas Irvin via Peripheral IV. 10:59:07 HR=83 bpm, NTJN=979/105 mmhg, SpO2=96.0 %, Resp=15 B/min, Pain=0, Brianda=10, Hogan=2 10:59:50 50 mcg FENTANYL given in lab by Srinivas Irvin via Peripheral IV. 11:00:24 The LCA was injected and visualized at various angles. OMNIPAQUE, 350 MG, 150ML 150ML used . Recorded Pressure: Ao, HR=75, Condition=Condition 1 11:00:35 (Aorta) Ao 134/82/103 After removing the current catheter a JR 4.0 INFINITI CATHETER FR 5 was advanced over a WIRE, 3 MMJ .035 180CM 11:03:31 180CM. 11:04:06 HR=74 bpm, ZDMD=181/97 mmhg, SpO2=90.0 %, Resp=11 B/min, Pain=0, Brianda=10, Hogan=2 11:04:15 The RCA was injected and visualized at various angles. OMNIPAQUE, 350 MG, 150ML 150ML used . 11:07:18 Catheter was removed 11:07:23 Case End Assessment: Final Case, HR=80 BPM, Rhythm=reg, TWZH=736/90 mmhg, Chest Pain=0, Edema=None, Col or=Normal, Skin = Warm Right Pulses: Evaristo Ped=2, Femoral=2 Left Pulses: Post Tib=3, Femoral=2 11:08:10 Lower Right Extremities: Color=Normal Lower Left Extremities: Color=Normal Neurological: State=Alert, Ox3, MONSON Respiration: Resp=21 B/min, SpO2=95 % 11:09:07 HR=92 bpm, OHVQ=104/90 mmhg, SpO2=92.0 %, Resp=14 B/min, Pain=0, Brianda=10, Hogan=2 11:09:22 Catheter(s) removed without difficulty 11:09:40 180 mg BRILLINTA given in lab by Srinivas Irvin in Per mouth via Oral. 11:09:48 Sheath removed; pressure applied to access site. melanie 11:09:53 Sterile dressing applied to site 11:09:54 No case complications noted. 11:09:56 Cine recording checked. 11:09:59 Bedside Report will be given. 11:10:02 Contrast Scanned 11:10:04 A Left Heart Cath was performed. 11:14:10 HR=75 bpm, EFVC=344/84 mmhg, SpO2=92 %, Resp=18 B/min, Pain=0, Brianda=10, Hogan=2 11:19:09 HR=63 bpm, NRYA=100/76 mmhg, SpO2=92.0 %, Resp=12 B/min, Pain=0, Brianda=10, Hogan=2 11:24:08 HR=66 bpm, GGIW=998/85 mmhg, SpO2=89.0 %, Resp=14 B/min, Pain=0, Brianda=10, Hogan=2 End Study - Contrast Media Used In Study Contrast Total Opened (mL) Total Used (mL) Total Wasted (mL) Omnipaque 55 55 0 End Study - Maximum Contrast Load Max Contrast Load (mL) 480.0 End Study - Radiation Exposure Fluoro Time (minutes) 3.2 End Study - Sheaths Sheaths Pulled By Sheath Hold Time (min) Jim Perez 15 End Study - Patient Disposition Complications Transferred To No Outpatient Bed
[2017-02-24] MEDS ORDERED: METOCLOPRAMIDE HCL 10 MG/2 ML VIAL IV PUSH PRN (11:30)
[2017-02-24] MEDS ORDERED: ONDANSETRON HCL 4 MG/2 ML VIAL IV PUSH PRN (11:30)
[2017-02-24] MEDS ORDERED: ATROPINE SULFATE 1 MG/ML VIAL IV PUSH PRN (11:30)
[2017-02-24] MEDS ORDERED: BACITRACIN OINT 0.9 GM PKT TOP ONE (11:30)
[2017-02-24] MEDS ORDERED: LORazepam 2 MG/ML VIAL IV PUSH PRN (11:30)
[2017-02-24] MEDS ORDERED: SODIUM CHLOR 0.9% 250 ML INJ 250 ML IV PRN (11:30)
[2017-02-24] MEDS ORDERED: LIDOCAINE HCL 1% 50 ML VIAL INFIL PRN (11:30)
[2017-02-24] MEDS ORDERED: MISC INFORMATION XX ONE (11:30)
[2017-02-24] MEDS ORDERED: oxyCODONE/ACETAMINOPHEN 5 MG/325 MG TAB PO PRN ×2 (11:30)
--- NOTE | 2017-02-24 11:38 | EKG ---
Date Performed: 02/23/2017 Time Performed: 13:57:07 PTAGE: 41 years EKG: Sinus rhythm NORMAL ECG NO PREVIOUS TRACING DOCTOR: Jordan Alejandre Interpretating Date/Time 02/24/2017 11:36:35
--- NOTE | 2017-02-24 11:41 | MA ---
cc: ISHMAEL CHENG DATE: 02/24/2017 INDICATION Unstable angina. PROCEDURE PERFORMED 1. Fluoroscopy with interpretation. 2. Coronary angiography. METHOD The risks, benefits and alternatives were discussed with the patient. The patient understood and consented to the procedure. The patient was brought into the catheterization lab and placed on the catheterization table. The right groin was prepped and draped in sterile fashion. The right groin was anesthetized with 2% lidocaine. The right common femoral was cannulated. A 5 Moroccan, 11 cm sheath was placed without difficulty. CORONARY ANGIOGRAPHY 1. The left main coronary has minor luminal irregularities, otherwise widely patent. 2. The left anterior descending coronary has stents present throughout its entire proximal segment which appear to be widely patent. The remainder of the left anterior descending coronary has minor luminal irregularities. There is a moderate-sized diagonal branch which has a stent present which is widely patent. 3. The left circumflex has an ostial 30% stenosis. The left circumflex is a dominant vessel giving rise to a posterior descending branch. The first obtuse marginal branch is widely patent. The posterior descending branch is widely patent. 4. The right coronary is nondominant and has an 80% discrete stenosis in the prox-mid segment. CONCLUSIONS 1. Widely patent left anterior descending and diagonal branch stents. 2. Small nondominant right coronary artery with discrete stenosis. PLAN The right coronary is too small for intervention. Will manage that medically with titration of a long-acting nitrate. The remainder of the left circumflex and LAD territories both appear to be widely patent. Anticipate discharge later today. MD ARIANNA Jimenez/TENZIN /11:13 AM /11:25 AM
--- NOTE | 2017-02-24 11:50 | EKG ---
Date Performed: 02/23/2017 Time Performed: 22:01:11 PTAGE: 41 years EKG: Sinus rhythm NORMAL ECG Compared to prior tracing no significant change PREVIOUS TRACING : 02/23/2017 22.00 DOCTOR: Jordan Alejandre Interpretating Date/Time 02/24/2017 11:50:23
--- NOTE | 2017-02-24 11:51 | EKG ---
Date Performed: 02/23/2017 Time Performed: 19:02:42 PTAGE: 41 years EKG: Sinus rhythm NORMAL ECG Compared to prior tracing no significant change PREVIOUS TRACING : 02/23/2017 13.57 DOCTOR: Jordan Alejandre Interpretating Date/Time 02/24/2017 11:50:38
[2017-02-24] MEDS ORDERED: ALPR.5 PO (12:22)
[2017-02-25] MEDS ORDERED: IOHEXOL 350 MG/ML 100 ML BTL (for Cath Lab) OTHER ONE (10:35)
--- NOTE | 2017-02-25 16:06 | EKG ---
Date Performed: 02/24/2017 Time Performed: 06:07:51 PTAGE: 41 years EKG: Sinus rhythm NORMAL ECG INTERPRETATION BASED ON A DEFAULT AGE OF 38 YEARS PREVIOUS TRACING : 02/23/2017 22.01 DOCTOR: Tyrone Johnston Interpretating Date/Time 02/25/2017 16:05:02
== END 2017-02-24 16:43 | disposition home or self-care (01) ==
LOC: NEPE 13:33 → NEDA 18:19 → NEPFCDU 20:04 → HCIS 02-24 10:31
PROVIDERS: ADMIT Internal Medicine; ATTEND Internal Medicine
DX: R07.89 Other chest pain (principal); I25.110 Atherosclerotic heart disease of native coronary artery with unstable angina pectoris; R11.0 Nausea; I10 Essential (primary) hypertension; Z95.5 Presence of coronary angioplasty implant and graft; Z79.899 Other long term (current) drug therapy; Z79.82 Long term (current) use of aspirin
CPT/HCPCS: 71020; 80053; 82550; 82552; 83690; 83735; 84484; 85025; 85610; 85730; 93005; 93454; 96361; 96374; 96375; 96376; 99152; 99285; C1769; C1893; G0378; J1644; J2250; J2270; J2405; J3010; J7030; Q9967